=== PATIENT | male | born 1985 | race Two or more races ===

== ENCOUNTER 2023-09-19 16:12 | Emergency (ER) | payer BC ==
[2023-09-19 16:35] VITALS: BP 117/85; PULSE 77; RESP 17; TEMP 98.2; BMI 26.9
[2023-09-19 18:36] LABS: BASO % 0.5 % (0-2.0); EOS % 0.5 % (0-4.5); HEMOGLOBIN 14.7 GM/dL (11.7-16.9); LYMPH % 26.2 % (8-40); MCHC 34.3 g/dl (32.0-35.9); MEAN CELL VOLUME 93.5 fl (80-96); MEAN PLT VOLUME 10.5 fl (7.5-11.1); MONO % 5.3 % (3.8-10.2); NEUT % 67.5 % (42.8-82.8); PLATELET COUNT 169 10^3/uL (134-434); RBC 4.59 M/mm3 (4.00-5.60); RDW 12.8 % (11.9-15.9); WHITE BLOOD COUNT 6.5 K/mm3 (4.0-10.0)
[2023-09-19 18:46] LABS: INR 2.33 (0.83-1.09); PROTHROMBIN TIME (PATIENT) 26.8 SEC (9.7-13.0)
[2023-09-19 18:48] LABS: ACTIVATED PTT 52.7 SECONDS (25.2-36.5)
[2023-09-19 19:08] LABS: POTASSIUM 3.6 mmol/L (3.5-5.1)
[2023-09-19 19:10] LABS: ALBUMIN 4.3 g/dl (3.4-5.0); BLOOD UREA NITROGEN 11.9 mg/dL (7-18); CALCIUM 9.2 mg/dL (8.5-10.1)
[2023-09-19 19:13] LABS: CREATININE 0.9 mg/dL (0.55-1.3)
[2023-09-19 19:15] LABS: BILIRUBIN,TOTAL 0.8 mg/dL (0.2-1); TOT PROT 7.9 g/dl (6.4-8.2)
== END 2023-09-19 21:05 | disposition left against medical advice (07) ==
LOC: JER 16:12
DX: R07.9 Chest pain, unspecified (principal)
CPT/HCPCS: 36415; 71046-TC-FY; 80053; 84484; 85025; 85610; 85730; 93005; 93010; 99285-25